=== PATIENT | male | born 1970 | race Caucasian/White ===

== ENCOUNTER 2025-01-14 16:24 | Emergency (ER) | payer BC ==
[~2025-01-14] VITALS: Ht 172.7 cm; Wt 81.6 kg
[2025-01-14] MEDS ORDERED: SODIUM CHLORIDE 0.9% 1,000 ML IV ONE (16:30)
[2025-01-14 16:41] LABS: MEAN CELL VOLUME 89.7 fl (80.0-94.0); MEAN CORPUSCULAR HGB 28.8 pg (27.0-31.0); MEAN PLATELET VOLUME 10.7 fl (9.6-12.3); NUCLEATED RED BLOOD CELL 0.0 % (0.0-0.0); NUCLEATED RED BLOOD CELL 0.0 10*3/uL (0.0-0.0); PLATELET COUNT AUTOMATED 259 10*3/uL (130-400); RED CELL DISTRI WIDTH 13.5 % (0-14.5)
[2025-01-14 16:45] LABS: MANUAL DIFF REFLEX YES
[2025-01-14] MEDS ORDERED: IOHEXOL 300 MG/ML 100 ML VIAL IV ONE (16:55)
[2025-01-14] MEDS ORDERED: fentaNYL CITRATE/PF 50 MCG/ML SYRINGE IV ONE (16:55)
[2025-01-14 17:05] LABS: PLATELET SUFFICIENCY NORMAL (NORMAL)
[2025-01-14] MEDS ORDERED: IOHEXOL 300 MG/ML 100 ML VIAL ONE (17:22)
[2025-01-14 18:02] LABS: BUN 24.0 mg/dl (9-23)
[2025-01-14] MEDS ORDERED: SODIUM CHLORIDE 0.9% 500 ML IV ONE (18:40)
[2025-01-14] MEDS ORDERED: Ondansetron Hydrochloride 4 MG/2 ML VIAL IV ONE (18:50)
== END 2025-01-14 18:09 | disposition short-term general hospital (02) ==
LOC: ED 16:24
PROVIDERS: Student in an Organized Health Care Education/Training Program
DX: S82.141A Displaced bicondylar fracture of right tibia, initial encounter for closed fracture (principal); S82.831A Other fracture of upper and lower end of right fibula, initial encounter for closed fracture; M54.9 Dorsalgia, unspecified; W17.89XA Other fall from one level to another, initial encounter; Y93.89 Activity, other specified; Y92.89 Other specified places as the place of occurrence of the external cause; Y99.8 Other external cause status